=== PATIENT | male | born 1950 | race Caucasian/White ===

== ENCOUNTER → 2020-06-05 15:20 | Outpatient (BNVA) | payer MEDICARE, OTHER, SELFPAY | PROVIDERS: Visit Provider Nurse Practitioner Family | DX: R19.7 Diarrhea, unspecified (principal); R05 Cough; J06.9 Acute upper respiratory infection, unspecified | CPT/HCPCS: 87635 ==

== ENCOUNTER → 2022-08-24 10:42 | Outpatient (BNVA) | payer MEDICARE, OTHER, SELFPAY | PROVIDERS: Visit Provider Family Medicine | DX: J06.9 Acute upper respiratory infection, unspecified (principal); J11.1 Influenza due to unidentified influenza virus with other respiratory manifestations | CPT/HCPCS: 87400 ==

== ENCOUNTER → 2024-11-25 14:54 | Outpatient (BNVA) | payer MEDICARE, OTHER, SELFPAY | PROVIDERS: PCP Family Medicine; Visit Provider Family Medicine | DX: I10 Essential (primary) hypertension (principal); E11.65 Type 2 diabetes mellitus with hyperglycemia; E78.2 Mixed hyperlipidemia; I73.9 Peripheral vascular disease, unspecified; I25.10 Atherosclerotic heart disease of native coronary artery without angina pectoris | CPT/HCPCS: 80053; 80061; 82043; 83036; 84443; 85025 ==

== ENCOUNTER 2025-01-07 13:38 | Outpatient (CLI) | payer MEDICARE, OTHER, SELFPAY ==
--- NOTE | 2025-01-07 13:42 | XRR_ITS ---
PROCEDURE INFORMATION: Exam: XR Left Knee Exam date and time: 01/07/2025 1:53 PM Age: 74 years old Clinical indication: Pain; Knee; Left; Tore meniscus in June; Additional info: Knee pain after injury 08/04 TECHNIQUE: Imaging protocol: Radiologic exam of the left knee. Views: 3 views. COMPARISON: No relevant prior studies available. FINDINGS: Bones/joints: Normal alignment. No fracture. Superior patellar enthesopathy. Soft tissues: Normal. Vasculature: Peripheral atherosclerotic disease. XR/XR knee LT 3V* [id number] IMPRESSION: No acute osseous abnormality.
== END 2025-01-07 13:39 | disposition home or self-care (01) ==
LOC: RAD 13:41
PROVIDERS: PCP Family Medicine; Visit Provider Family Medicine
DX: M76.52 Patellar tendinitis, left knee (principal); I70.202 Unspecified atherosclerosis of native arteries of extremities, left leg
CPT/HCPCS: 73562

== ENCOUNTER 2025-01-09 09:46 | Outpatient (CLI) | payer MEDICARE, OTHER, SELFPAY ==
--- NOTE | 2025-01-09 10:15 | MR_ITS ---
WS: [id number] MRI LEFT KNEE NONCONTRAST TECHNIQUE: Axial PD, coronal PD fat sat, coronal PD, sagittal PD, and sagittal PD fat-sat images obtained. CLINICAL INFORMATION: L knee pain; cartilage tear suspected COMPARISON: None. FINDINGS: Moderate tricompartmental arthritis. Hypertrophic changes along the joint line. Hypertrophic patella. Distal quadriceps and patella tendons are intact. ACL and PCL are intact. Normal medial and lateral collateral ligaments. Normal popliteus. Fibular head is normal. Normal lateral meniscus. Chronic thinning of the medial meniscus with slight peripheral extrusion. Small amount of chronic appearing intrasubstance signal abnormality in the posterior horn medial meniscus. No acute appearing meniscal tears. Moderate grade III chondromalacia patella. Medial and lateral collateral ligaments appear intact. Normal popliteus. Normal biceps femoris. Tiny popliteal cyst. MR/MR knee LT wo con* [id number] IMPRESSION: 1. 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 2. Grade III chondromalacia patella. 3. Grade III chondromalacia in the medial and lateral joint compartments worse in the medial joint compartment with joint space narrowing. 4. Hypertrophic patella. Small suprapatellar effusion. 5. No other acute findings. Outbridge grading:
== END 2025-01-09 09:47 | disposition home or self-care (01) ==
PROVIDERS: PCP Family Medicine; Visit Provider Family Medicine
DX: M17.12 Unilateral primary osteoarthritis, left knee (principal); M94.262 Chondromalacia, left knee; M89.38 Hypertrophy of bone, other site; M25.462 Effusion, left knee; R93.6 Abnormal findings on diagnostic imaging of limbs
CPT/HCPCS: 73721

== ENCOUNTER → 2025-03-04 15:43 | Outpatient (BNVA) | payer MEDICARE, OTHER, SELFPAY | PROVIDERS: PCP Family Medicine; Visit Provider Family Medicine | DX: E29.1 Testicular hypofunction (principal); E11.65 Type 2 diabetes mellitus with hyperglycemia | CPT/HCPCS: 83036; 84403 ==

== ENCOUNTER → 2025-06-17 14:06 | Outpatient (BNVA) | payer MEDICARE, OTHER, SELFPAY | PROVIDERS: PCP Family Medicine; Visit Provider Thoracic Surgery (Cardiothoracic Vascular Surgery) | DX: I96 Gangrene, not elsewhere classified (principal); T25.331A Burn of third degree of right toe(s) (nail), initial encounter; T25.231A Burn of second degree of right toe(s) (nail), initial encounter; X08.8XXA Exposure to other specified smoke, fire and flames, initial encounter | CPT/HCPCS: 97597; 99203 ==

== ENCOUNTER → 2025-06-24 09:50 | Outpatient (BNVA) | payer MEDICARE, OTHER, SELFPAY | PROVIDERS: PCP Family Medicine; Visit Provider Thoracic Surgery (Cardiothoracic Vascular Surgery) | DX: I96 Gangrene, not elsewhere classified (principal); T25.231A Burn of second degree of right toe(s) (nail), initial encounter; T25.331A Burn of third degree of right toe(s) (nail), initial encounter; X08.8XXA Exposure to other specified smoke, fire and flames, initial encounter | CPT/HCPCS: 97597 ==

== ENCOUNTER → 2025-07-01 09:38 | Outpatient (BNVA) | payer MEDICARE, OTHER, SELFPAY | PROVIDERS: PCP Family Medicine; Visit Provider Thoracic Surgery (Cardiothoracic Vascular Surgery) | DX: I96 Gangrene, not elsewhere classified (principal); T25.231D Burn of second degree of right toe(s) (nail), subsequent encounter; X08.8XXD Exposure to other specified smoke, fire and flames, subsequent encounter | CPT/HCPCS: 97597; A6212 ==

== ENCOUNTER → 2025-07-08 09:34 | Outpatient (BNVA) | payer MEDICARE, OTHER, SELFPAY | PROVIDERS: PCP Family Medicine; Visit Provider Thoracic Surgery (Cardiothoracic Vascular Surgery) | DX: I96 Gangrene, not elsewhere classified (principal); T25.231D Burn of second degree of right toe(s) (nail), subsequent encounter; X08.8XXD Exposure to other specified smoke, fire and flames, subsequent encounter | CPT/HCPCS: 97597; A6251 ==

== ENCOUNTER → 2025-07-15 08:29 | Outpatient (BNVA) | payer MEDICARE, OTHER, SELFPAY | PROVIDERS: PCP Family Medicine; Visit Provider Thoracic Surgery (Cardiothoracic Vascular Surgery) | DX: I96 Gangrene, not elsewhere classified (principal); T25.231D Burn of second degree of right toe(s) (nail), subsequent encounter; X08.8XXD Exposure to other specified smoke, fire and flames, subsequent encounter | CPT/HCPCS: 97597; A6021; A6212 ×2 ==

== ENCOUNTER → 2025-07-22 08:33 | Outpatient (BNVA) | payer MEDICARE, OTHER, SELFPAY | PROVIDERS: PCP Family Medicine; Visit Provider Thoracic Surgery (Cardiothoracic Vascular Surgery) | DX: I96 Gangrene, not elsewhere classified (principal); T25.231D Burn of second degree of right toe(s) (nail), subsequent encounter; X08.8XXD Exposure to other specified smoke, fire and flames, subsequent encounter | CPT/HCPCS: 97597; A6021 ==

== ENCOUNTER → 2025-07-29 09:05 | Outpatient (BNVA) | payer MEDICARE, OTHER, SELFPAY | PROVIDERS: PCP Family Medicine; Visit Provider Thoracic Surgery (Cardiothoracic Vascular Surgery) | DX: I96 Gangrene, not elsewhere classified (principal); T25.231D Burn of second degree of right toe(s) (nail), subsequent encounter; X08.8XXD Exposure to other specified smoke, fire and flames, subsequent encounter | CPT/HCPCS: 97597; A6021; A6212 ==

== ENCOUNTER → 2025-08-12 08:46 | Outpatient (BNVA) | payer MEDICARE, OTHER, SELFPAY | PROVIDERS: PCP Family Medicine; Visit Provider Thoracic Surgery (Cardiothoracic Vascular Surgery) | DX: I96 Gangrene, not elsewhere classified (principal); T25.231D Burn of second degree of right toe(s) (nail), subsequent encounter; X08.8XXD Exposure to other specified smoke, fire and flames, subsequent encounter | CPT/HCPCS: 97597; A6219; A6252 ==

== ENCOUNTER → 2025-08-26 08:33 | Outpatient (BNVA) | payer MEDICARE, OTHER, SELFPAY | PROVIDERS: PCP Family Medicine; Visit Provider Thoracic Surgery (Cardiothoracic Vascular Surgery) | DX: I96 Gangrene, not elsewhere classified (principal); T25.231D Burn of second degree of right toe(s) (nail), subsequent encounter; X08.8XXD Exposure to other specified smoke, fire and flames, subsequent encounter | CPT/HCPCS: 97597; A6212 ==

== ENCOUNTER → 2025-09-09 08:39 | Outpatient (BNVA) | payer MEDICARE, OTHER, SELFPAY | PROVIDERS: PCP Family Medicine; Visit Provider Thoracic Surgery (Cardiothoracic Vascular Surgery) | DX: Z09 Encounter for follow-up examination after completed treatment for conditions other than malignant neoplasm (principal); Z87.2 Personal history of diseases of the skin and subcutaneous tissue | CPT/HCPCS: 99212; A6219 ==